=== PATIENT | male | born 1935 | race Caucasian/White ===

== ENCOUNTER 2017-11-28 13:27 | Inpatient (IN) | payer MEDICARE, OTHER ==
[2017-11-28] MEDS ORDERED: Pantoprazole 80 MG in Sodium Chloride 0.9% 100 ML IVP SCH (14:45)
[2017-11-28] MEDS ORDERED: Ondansetron HCl/PF 4 MG/2 ML Vial IVP PRN (15:16)
--- NOTE | 2017-11-28 15:19 | HP ---
DATE OF ADMISSION: 11/28/2017 CHIEF COMPLAINT: Black stool. HISTORY OF PRESENT ILLNESS: This is an 82-year-old elderly white male with a known past medical hist ory of hypertension and hyperlipidemia, and has a recent history of influenza A infection. On 2016, he was diagnosed with influenza A following cross infection from his . The patient was sta rted on Tamiflu and he completed the course and last night 2 a.m. in the morning he experienced sever e profuse sweating and this was followed by a bowel movement which is completely black in color. Aby walton mentioned that he is on a medication called diclofenac twice a day and has been taking it for al most a couple of weeks for chronic pain management. It was started by his primary care physician. Jagdish hammond went to a nearby ER at [place] where he had rectal exam and it was positive for guaiac stool. The patient had NG tube placed to look for any active bleeding. There was no bleeding. He was sent imm ediately. He was sent following day to [facility] ER. Patient was admitted. He was pretty stable. His hemoglobin is 13.2. Did not appeared to be in any acute distress. No nausea was noted . No vomiting. While listening to me, he had severe sneezing episode wherein his NG tube came out. The patient was not nauseous anymore at this time. He denied having any chest pain. No abdominal p ain, no diarrhea, no constipation at this time. Patient has a remote history of gastric ulcers, duri ng which time he had a part of the stomach wall removed with major surgery. Since then, the patient never had any medical problems. He is not on any blood thinners except for the diclofenac. PAST MEDICAL HISTORY: 1. Hypertension. 2. Hyperlipidemia. 3. History of bowel obstructions. 4. History of gastric ulcers in the past. 5. Chronic back pain problems. PAST SURGICAL HISTORY: 1. Hernia repair. 2. History of bowel obstruction surgeries. 3. History of cholecystectomy. 4. History of left inguinal surgery. 5. History of orthopedic surgery to the lower back. 6. History of prostatectomy. SOCIAL HISTORY: The patient drinks every day. He drinks less than 5 drinks per day and denies smoki ng. No history of alcohol. No history of illicit drug use. He was a former smoker, smoked cigarett es more than 10 years ago. FAMILY HISTORY: No significant family history of colon cancer or any other malignancies. REVIEW OF SYSTEMS: All 12 systems are reviewed with the patient thoroughly and found to be negative at this time except the ones described in the HPI. The following complete review of systems was nega tive, unless otherwise mentioned in the HPI or below: Constitutional: Weight loss or gain, sense of well-being, ability to conduct usual activities, exerc ise tolerance. Skin/Breast: Rash, itching, changes in hair growth or loss, nail changes, breast lumps, tenderness, swelling, nipple discharge. Eyes: Vision, double vision, tearing, blind spots, pain. ENT/Mouth: Headaches (location, time of onset, duration, precipitating factors), vertigo, lightheade dness, injury. Vision, double vision, tearing, blind spots, pain, nose bleeding, colds, obstruction, discharge, dental difficulties, gingival bleeding, dentures, neck stiffness, pain, tenderness, masses in thyroid or other areas Cardiovascular: Precordial pain, substernal distress, palpitations, syncope, dyspnea on exertion, or thopnea, nocturnal paroxysmal dyspnea, edema, cyanosis, hypertension, heart murmurs, varicosities, ph lebitis, claudication. Respiratory: Pain, shortness of breath, wheezing, stridor, cough, hemoptysis, fever or night sweats Gastrointestinal: Poor appetite, dysphagia, indigestion, abdominal pain, heartburn, eructation, naus ea, vomiting, hematemesis, jaundice, constipation, or diarrhea, abnormal stools (felipe-colored, tarry, bloody, greasy, foul smelling), flatulence, hemorrhoids, recent changes in bowel habits. Genitourinary: Urgency, frequency, dysuria, nocturia, hematuria, polyuria, oliguria, unusual (or kiana nge in) color of urine, stones, hesitancy, change in size of stream, dribbling, acute retention or in continence, libido, potency. Musculoskeletal: Pain, swelling, redness or heat of muscles or joints, limitation, of motion, muscul ar weakness, atrophy, cramps. Neurologic/Psychiatric: Convulsions, paralyses, tremor, incoordination, paraesthesias, difficulties with memory of speech, sensory or motor disturbances, or muscular coordination (ataxia, tremor), emot ional problems, anxiety, depression, previous psychiatric care, unusual perceptions, hallucinations. Allergy/Immunologic: Skin rash, anemia, bleeding tendency, polydipsia, polyuria, intolerance to heat or cold. PHYSICAL EXAMINATION: VITAL SIGNS: Blood pressure is 110/88, heart rate is 100, respiratory rate is 22, saturation is 100% on room air. GENERAL: The patient is moderately built, does not appear to be in acute distress at this time, he i s seen sitting in the bed. HEENT: Atraumatic, normocephalic. PERRLA. Extraocular movements were intact. Oral mucosa is pink and moist. CARDIOVASCULAR: S1, S2 normal. No murmurs, rubs or gallops. LUNGS: Bilateral air entry was equal. No wheezing, no crackles. ABDOMEN: Soft, nontender, no guarding, no rebound tenderness. Bowel sounds normal. MUSCULOSKELETAL: No calf tenderness. No pedal edema, no joint tenderness, no joint swelling. SKIN: No cyanosis, no erythema, no rash, no pallor. CENTRAL NERVOUS SYSTEM: Cranial nerve examination II-XII intact. No focal deficits were noted. NECK: No thyromegaly, no JVD, no lymphadenopathy. PSYCHIATRIC: No signs of suicidal ideation and no signs of sarath. LYMPHATICS: No evidence of generalized lymphadenopathy. No inguinal or cervical lymph nodes were no iraj. LABORATORY DATA: 1. WBC 11.9, hemoglobin 13.1, hematocrit 39.6, INR 1.0. Sodium is 142, potassium 5.1, chloride 110, bicarbonate is 20, BUN is 49, creatinine 0.77. Blood sugar is 130. 2. UA was negative for any urinary tract infection. ASSESSMENT: 1. Acute upper gastrointestinal bleed. 2. History of NSAID use. 3. History of gastric ulcers with gastrectomy. 4. Hypertension. 5. Hyperlipidemia. 6. History of chronic low back pains. PLAN: 1. Plan is to keep the patient n.p.o. at this time. We will start the patient on IV Protonix drip a nd we will consult GI for possible esophagogastroduodenoscopy in the morning. Patient is high risk f or major bleeds because of his NSAID use and with history of gastric ulcers and history of gastrectom y in the past. 2. Patient has a history of hypertension, it is well controlled. At this time, we will hold off on the blood pressure medications and we will treat with hydralazine 10 mg q.6 hours p.r.n. for any bloo d pressures more than 160. 3. Patient has history of hyperlipidemia. We will hold off on the statin at this time. We will naz sely monitor. 4. Patient has a history of alcoholism. He denies drinking alcohol 2 days ago, but we will closely monitor for any evidence of alcohol withdrawal seizures. 5. The patient's hemoglobin is stable at this time at 13.1. We will repeat another hemoglobin at 18 00. If it drops to anywhere less than 10, we will have low threshold to start him on blood transfusi on. 6. DVT prophylaxis, SCDs. I spent 70 minutes on this patient.
[2017-11-28 15:27] VITALS: BMI 29.0
[2017-11-28] MEDS: Morphine 4 MG/ML VIAL SLOW IVP PRN (17:48)
[2017-11-28] MEDS: Sodium Chloride 0.9% 1,000 ML IV SCH (17:48)
[2017-11-28 19:03] LABS: #Lymphocytes 1.8 thou/uL (1.20-3.40); #Monocytes 0.9 thou/uL (0.11-0.59); #Neutrophils 11.7 thou/uL (1.40-6.50); %Basophils 0.1 % (0.0-1.0); %Eosinophils 0.2 % (0.0-10.0); %Lymphocytes 12.3 % (21.0-51.0); %Neutrophils 81.5 % (42.0-75.0); Hemoglobin 11.8 g/dL (14.0-18.0); Mean Corpuscular Hemoglobin 31.5 pg (27.0-31.0); Mean Corpuscular Volume 92.8 fl (80.0-94.0); Mean Platelet Volume 9.3 fL (7.4-10.4); Platelet Count 189 thou/uL (130-400); Red Blood Cell (RBC) Count 3.73 mill/uL (4.70-6.10); White Blood Cell (WBC) Count 14.3 thou/uL (4.8-10.8)
--- NOTE | 2017-11-28 20:02 | CON ---
DATE OF CONSULTATION: 11/28/2017 HISTORY OF PRESENT ILLNESS: The patient is an 82-year-old white male who was in normal state of heal th until the last few days when he developed influenza A. He was treated with Tamiflu, was doing wel l until this morning when he woke and had a black tarry stool. He has had similar episode 20 years a go or more when he had a bleeding ulcer that was treated surgically. He denies any abdominal pain, n ausea, vomiting, any recent weight loss. He does take diclofenac for arthritis. PAST MEDICAL HISTORY: Includes hypertension, hyperlipidemia, bowel obstruction, chronic back pain. PAST SURGICAL HISTORY: Herniorrhaphy, partial gastrectomy for gastric ulcers, cholecystectomy, ingui nal hernia repair, lower back surgery, prostatectomy. MEDICATIONS: Zantac 150 mg p.o. b.i.d., Toprol-XL 50 mg p.o. daily, lisinopril and hydrochlorothiazi de 1 p.o. daily, omega 3 one p.o. daily, gabapentin 300 mg p.o. t.i.d., Vytorin 1 p.o. at bedtime, di clofenac 75 mg p.o. b.i.d., calcium and vitamin D 1 p.o. daily. ALLERGIES: CELEBREX, CONTRAST DYE, PENICILLIN, and SULFA. SOCIAL HISTORY: He quit smoking 5 years ago. Drinks 2 beers per day. FAMILY HISTORY: Negative for GI or liver disease. REVIEW OF SYSTEMS: Constitutional: No fever or chills. No weight loss. Eyes: No blurred vision o r double vision. ENT: No sore throat or earaches. Cardiovascular: No chest pain or palpitation. Pulmonary: No shortness of breath, cough, or wheezing. Gastrointestinal: See above. Genitourinary : No hematuria or dysuria. Musculoskeletal: No joint pain or muscle weakness. Skin: No rashes. Neurologic: No numbness or seizure activity. PHYSICAL EXAMINATION: GENERAL: Shows a well-developed, well-nourished, elderly white male in no acute distress. VITAL SIGNS: Temperature 97.7, pulse 113, respiratory rate 18, blood pressure 101/59. HEENT: Unremarkable. NECK: Supple. CHEST: Clear. CARDIOVASCULAR: Regular rate and rhythm. ABDOMEN: Soft and nontender without organomegaly or masses. Bowel sounds are present and normoactiv e. RECTAL: Deferred. EXTREMITIES: Normal. LABORATORY DATA: Laboratory done at [facility] showed a white blood cell count 11.9, hemoglob in 13, hematocrit 39.6. PT is 13.2, INR of 1. Chemistries significant for a chloride 110, CO2 of 20 , BUN 49, creatinine 0.77, glucose 130. ASSESSMENT: 1. Upper gastrointestinal bleed. 2. History of peptic ulcer disease, status post partial gastrectomy. RECOMMENDATIONS: 1. Proton-pump inhibitor. 2. EGD tomorrow. 3. Okay to begin clears.
[2017-11-29] MEDS: Morphine 4 MG/ML VIAL SLOW IVP PRN ×4 (03:05→22:11)
[2017-11-29] MEDS: Sodium Chloride 0.9% 1,000 ML IV SCH ×2 (03:05→13:45)
[2017-11-29] MEDS ORDERED: Lidocaine 1% PF 5 ML VIAL ONE (06:45)
[2017-11-29 07:06] LABS: Chloride 113 mmol/L (98-107); Potassium 4.3 mmol/L (3.5-5.1); Sodium 144 mmol/L (136-145)
[2017-11-29 07:07] LABS: Calcium 8.9 mg/dL (7.8-10.44); Glucose 114 mg/dL (83-110)
[2017-11-29 07:09] LABS: Anion Gap 12 mmol/L (10-20); Carbon Dioxide 23 mmol/L (23-31)
[2017-11-29 07:10] LABS: Calc. Creatinine Clearance 102 mL/min (70-130); Estimated GFR-MDRD Greater than 90
[2017-11-29 07:11] LABS: BUN (Urea Nitrogen) 43 mg/dL (8.4-25.7)
--- NOTE | 2017-11-29 12:22 | PDOC.PN ---
- Subjective Encounter Start Date: 11/29/17 Encounter Start Time: 12:21 Subjective: Seen and examined c/o sciatica pain - Objective Resuscitation Status: Resuscitation Status FULL:Full Resuscitation Vital Signs & Weight: Vital Signs (12 hours) Temp Pulse Resp BP BP Pulse Ox 11/29/17 11:25 98.3 F 82 16 141/68 H 96 11/29/17 07:24 97.5 F L 80 18 119/66 96 11/29/17 07:15 97.5 F L 80 18 11/29/17 03:05 97.7 F 74 16 119/71 97 Weight Weight 226 lb 11.2 oz I&O: 11/28/17 11/29/17 11/30/17 06:59 06:59 06:59 Intake Total 1331 Output Total 1500 450 Balance -169 -450 Result Diagrams: 11/28/17 18:39 11/29/17 06:45 Phys Exam - Physical Examination Constitutional: NAD HEENT: PERRLA, moist MMs, sclera anicteric, TM's clear Neck: no JVD, supple, full ROM Respiratory: no wheezing, no rales, no rhonchi, clear to auscultation bilateral Cardiovascular: RRR, no significant murmur, no rub Gastrointestinal: soft, non-tender, no distention, positive bowel sounds Dx/Plan (1) GI bleed Code(s): K92.2 - GASTROINTESTINAL HEMORRHAGE, UNSPECIFIED Status: Acute (2) Dyslipidemia Code(s): E78.5 - HYPERLIPIDEMIA, UNSPECIFIED Status: Chronic (3) GERD (gastroesophageal reflux disease) Code(s): K21.9 - GASTRO-ESOPHAGEAL REFLUX DISEASE WITHOUT ESOPHAGITIS Status: Chronic (4) Hypertension Code(s): I10 - ESSENTIAL (PRIMARY) HYPERTENSION Status: Chronic - Plan PT/OT, social human services assistants IVF -: EGD today * .
[2017-11-29] MEDS ORDERED: Ondansetron HCl/PF 4 MG/2 ML Vial IVP PRN ×2 (14:36→15:49)
[2017-11-29] MEDS ORDERED: Fentanyl 100 MCG/2 ML VIAL ONE ×2 (15:17→15:33)
[2017-11-29] MEDS ORDERED: Promethazine HCl 25 MG/ML VIAL SLOW IVP PRN (15:49)
[2017-11-29] MEDS ORDERED: Promethazine HCl 25 MG/ML VIAL IM PRN (15:49)
[2017-11-29 16:39] LABS: Hemoglobin 10.8 g/dL (14.0-18.0); Mean Corpuscular HGB CONC 33.4 g/dL (32.0-36.0); Mean Corpuscular Hemoglobin 31.4 pg (27.0-31.0); Mean Platelet Volume 8.9 fL (7.4-10.4); Platelet Count 186 thou/uL (130-400); Red Blood Cell (RBC) Count 3.43 mill/uL (4.70-6.10); White Blood Cell (WBC) Count 15.3 thou/uL (4.8-10.8)
--- NOTE | 2017-11-29 17:18 | OP ---
PREOPERATIVE DIAGNOSIS: Upper gastrointestinal bleed. PROCEDURE: After informed consent was obtained, the patient placed in the left lateral decubitus pos ition. Anesthesia was administered per the Anesthesia Department. Forward-viewing endoscope was ins erted into the esophagus under direct visualization with ease and passed to the second portion of the duodenum. There in the area beyond the anastomosis with some bright red blood. There seemed to be a small ulcer with a visible vessel. This was initially cauterized with a 10-Fijian BICAP electrocau harrison and probe with brisk bleeding. The probe was removed and then the epinephrine 1:[id number] was injec iraj in a 4 quadrant fashion achieving good hemostasis. Then, the visible vessel was completely ablat ed with a 10-Fijian BICAP electrocautery probe. Good hemostasis was achieved. ASSESSMENT: 1. Duodenal ulcer with active bleeding - status post sclerotherapy and BICAP electrocautery. 2. Antrectomy with a Billroth I anastomosis. RECOMMENDATIONS: 1. Continue Protonix infusion. 2. Serial H&H. 3. Clear liquids.
[2017-11-29] MEDS: Pantoprazole 80 MG in Sodium Chloride 0.9% 100 ML IVP SCH (19:48)
[2017-11-30] MEDS: Pantoprazole 80 MG in Sodium Chloride 0.9% 100 ML IVP SCH (06:29)
[2017-11-30 06:39] LABS: Hemoglobin 9.1 g/dL (14.0-18.0); Mean Corpuscular HGB CONC 33.4 g/dL (32.0-36.0); Mean Corpuscular Hemoglobin 31.3 pg (27.0-31.0); Mean Corpuscular Volume 93.7 fl (80.0-94.0); Mean Platelet Volume 9.3 fL (7.4-10.4); Platelet Count 162 thou/uL (130-400); Red Blood Cell (RBC) Count 2.91 mill/uL (4.70-6.10); White Blood Cell (WBC) Count 8.7 thou/uL (4.8-10.8)
[2017-11-30 06:48] LABS: Anion Gap 11 mmol/L (10-20); BUN (Urea Nitrogen) 31 mg/dL (8.4-25.7); Calc. Creatinine Clearance 110 mL/min (70-130); Calcium 9.1 mg/dL (7.8-10.44); Carbon Dioxide 27 mmol/L (23-31); Chloride 109 mmol/L (98-107); Estimated GFR-MDRD Greater than 90; Glucose 96 mg/dL (83-110); Potassium 3.8 mmol/L (3.5-5.1); Sodium 143 mmol/L (136-145)
[2017-11-30] MEDS: Morphine 4 MG/ML VIAL SLOW IVP PRN (07:27)
--- NOTE | 2017-11-30 11:01 | PDOC.PN ---
- Subjective Encounter Start Date: 11/30/17 Encounter Start Time: 10:59 Subjective: seen and examined feeling ok - Objective Vital Signs & Weight: Vital Signs (12 hours) Temp Pulse Resp BP Pulse Ox 11/30/17 07:35 98.6 F 67 16 94 L 11/30/17 07:34 98.6 F 67 16 130/60 94 L 11/30/17 04:30 98.3 F 76 16 134/66 95 11/30/17 00:00 97.9 F 82 16 I&O: 11/29/17 11/30/17 12/01/17 06:59 06:59 06:59 Intake Total 450 Output Total 375 Balance 75 Result Diagrams: 11/30/17 05:15 11/30/17 05:15 Phys Exam - Physical Examination Constitutional: NAD HEENT: PERRLA, moist MMs, sclera anicteric, TM's clear, oral pharynx no lesions Neck: no nodes, no JVD, supple, full ROM Respiratory: no wheezing, no rales, no rhonchi, clear to auscultation bilateral Cardiovascular: RRR, no significant murmur, no rub Gastrointestinal: soft, non-tender, no distention, positive bowel sounds Musculoskeletal: no edema, pulses present Dx/Plan (1) GI bleed Code(s): K92.2 - GASTROINTESTINAL HEMORRHAGE, UNSPECIFIED Status: Acute (2) Dyslipidemia Code(s): E78.5 - HYPERLIPIDEMIA, UNSPECIFIED Status: Chronic (3) GERD (gastroesophageal reflux disease) Code(s): K21.9 - GASTRO-ESOPHAGEAL REFLUX DISEASE WITHOUT ESOPHAGITIS Status: Chronic (4) Hypertension Code(s): I10 - ESSENTIAL (PRIMARY) HYPERTENSION Status: Chronic (5) Bleeding duodenal ulcer Code(s): K26.4 - CHRONIC OR UNSPECIFIED DUODENAL ULCER WITH HEMORRHAGE Status : Acute (6) Abnormal findings on esophagogastroduodenoscopy (EGD) Code(s): R19.8 - OTH SYMPTOMS AND SIGNS INVOLVING THE DGSTV SYS AND ABDOMEN Status: Acute - Plan [employer] social worker Trending hemoglobin--still trending downwards -: On Protonix gtt-defer to Gi decision -: D/c home when ok with GI -: pain management of the sciatica with Tramadol/neurontin * .
[2017-11-30] MEDS ORDERED: traMADol HCl 50 MG TAB PO PRN (11:13)
--- NOTE | 2017-11-30 18:00 | PRG ---
DATE OF SERVICE: 11/30/2017 SUBJECTIVE: The patient is doing much better. He has had some bowel movements since include some bl ack stools. His abdominal pain is much less. He has had no nausea, vomiting. He is on a fairly reg ular diet and tolerating that well. OBJECTIVE: VITAL SIGNS: Temperature 98.6, pulse 70, respiratory rate 17, anblood pressure 126/68. CHEST: Clear. CARDIOVASCULAR: Regular rate and rhythm. ABDOMEN: Soft, nontender, without organomegaly or masses. LABORATORY DATA: Shows hemoglobin yesterday being 10.8 and dropping 9.0. ASSESSMENT: Upper gastrointestinal bleed secondary to duodenal ulcer - stable. RECOMMENDATIONS: 1. Recheck H&H in a.m. If stable, the patient would be to okay to discharge from GI standpoint. 2. Continue proton-pump inhibitor. 3. Follow up with GI as outpatient.
[2017-11-30] MEDS: Gabapentin 100 MG CAP PO SCH (21:09)
[2017-12-01 03:18] VITALS: TEMP 98
[2017-12-01 05:06] LABS: Hemoglobin 8.6 g/dL (14.0-18.0)
[2017-12-01 05:28] LABS: Anion Gap 10 mmol/L (10-20); BUN (Urea Nitrogen) 21 mg/dL (8.4-25.7); Calc. Creatinine Clearance 110 mL/min (70-130); Calcium 8.8 mg/dL (7.8-10.44); Carbon Dioxide 28 mmol/L (23-31); Chloride 106 mmol/L (98-107); Estimated GFR-MDRD Greater than 90; Glucose 91 mg/dL (83-110); Potassium 3.7 mmol/L (3.5-5.1); Sodium 140 mmol/L (136-145)
[2017-12-01] MEDS: Gabapentin 100 MG CAP PO SCH (07:54)
[2017-12-01 08:25] VITALS: BP 148/70
== END 2017-12-01 10:32 | disposition home or self-care (01) | DRG 379 ==
LOC: ERS 13:27 → 2SW 14:10 → OBSVTOIN 11-29 18:50
PROVIDERS: ADMIT Family Medicine; ATTEND Family Medicine
PROC: 0W3P8ZZ Control Bleeding in Gastrointestinal Tract, Via Natural or Artificial Opening Endoscopic (ICD-10-PCS; principal; 2017-11-29)
PROC: 3E0G8GC Introduction of Other Therapeutic Substance into Upper GI, Via Natural or Artificial Opening Endoscopic (ICD-10-PCS; 2017-11-29)
DX: K26.4 Chronic or unspecified duodenal ulcer with hemorrhage (principal); E78.5 Hyperlipidemia, unspecified; I10 Essential (primary) hypertension; Z90.3 Acquired absence of stomach [part of]; F10.21 Alcohol dependence, in remission; Z87.891 Personal history of nicotine dependence; K21.9 Gastro-esophageal reflux disease without esophagitis
CPT/HCPCS: 36415; 80048; 85014; 85018; 85027; 96374; 99285; C9113; J2001; J2270; J2405; J3010; J7050

== ENCOUNTER 2018-01-15 08:24 | Outpatient (CLI) | payer MEDICARE, OTHER ==
[2018-01-15 09:10] LABS: Estimated GFR-MDRD - POC Greater than 90
--- NOTE | 2018-01-15 10:04 | RAD ---
LUMBAR SPINE FOUR VIEWS INCLUDING FLEXION AND EXTENSION LATERAL VIEWS: History: 82-year-old male with history of lumbar radiculopathy and pain radiating to both legs with low back p ain. FINDINGS: There is levoscoliosis of the upper lumbar lower thoracic vertebral column. Very severe disc osteophy tosis and facet arthrosis. Extensive surgical clips in the inferior pelvis. There is an extensive, ap proximately 1.6 cm diameter anterolisthesis of L4 on L5, which does not significantly between flexion and extension. Severe facet arthrosis. IMPRESSION: Approximately 1.6 cm anterolisthesis of L4 on L5 but without significant change between flexion and e xtension. Severe spondylosis. Mild levoscoliosis. POS: SOFI
--- NOTE | 2018-01-15 11:43 | MRI ---
MRI OF THE LUMBAR SPINE WITH AND WITHOUT IV CONTRAST: Indication: 82-year-old male with low back pain radiating down both legs. The patient reportedly has difficulty w ith his feet feeling cold. Patient has history of lumbar spinal procedure 20 years ago. Technique: Multiplanar, multisequence MR images were obtained of the lumbar spine with and without contrast util izing 20 cc of MultiHance. Comparison: Lumbar spine radiographs, 01-15-18. FINDINGS: There is post procedural change of a laminectomy at L4-5. There is grade I anterolisthesis of L4 on L 5. There is mild retrolisthesis at L2-3 and L1-2. The visualized retroperitoneum demonstrate multiple small peripelvic cysts. No pathologically enlarged lymph nodes are seen within the retroperitoneum. 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 At the L5-S1 level, there is an asymmetric to the left disc osteophyte complex which in addition to l oss of disc space height and facet hypertrophy induces moderate to severe subarticular left lateral r ecess narrowing with encroachment on the traversing left S1 nerve root without definite impingement. The disc osteophyte complex, loss of disc space height, and facet hypertrophy also induces severe lef t neural foraminal narrowing with impingement on the exiting left L5 nerve root. There is no apprecia ble right neural foraminal narrowing. At The L4-5 level, there is advanced facet joint degenerative change. There is grade I anterolisthesi s. There is loss of disc space height and a broad based pseudo bulge than is greater on the right. Co nstellation of findings induces moderate to severe right and mild left neural foraminal narrowing. At L3-4, there is a broad based disc osteophyte complex with severe facet joint degenerative change a nd ligamentum flavum hypertrophy inducing moderate to severe central canal narrowing with moderate to severe left and moderate right neural foraminal narrowing. At L2-3, there is a broad based disc osteophyte complex with facet hypertrophy and ligamentum flavum hypertrophy inducing mild central canal narrowing with moderate to severe right and mild to moderate left neural foraminal narrowing. At L1-2, there is a broad based bulge with a superimposed right foraminal/extra foraminal disc osteop hyte complex inducing moderate to severe right and mild left neural foraminal narrowing. At T12-L1, there is a mild broad based bulge without appreciable central canal or neural foraminal na rrowing. No definite abnormal enhancement is demonstrated involving the cauda equina. IMPRESSION: 1. Post-operative lumbar spine. 2. Severe multilevel spondylosis with central canal and neural foraminal narrowing as detailed above. POS: SOFI
[2018-01-15] MEDS ORDERED: Gadobenate Dimeglumine 529 MG/1 ML (20ML VIAL) ONE (11:44)
== END 2018-01-15 08:25 | disposition home or self-care (01) ==
LOC: TBSIIMAG 08:24
PROVIDERS: ATTEND Surgery
DX: M47.26 Other spondylosis with radiculopathy, lumbar region (principal); M43.16 Spondylolisthesis, lumbar region; M41.86 Other forms of scoliosis, lumbar region
CPT/HCPCS: 72110; 72158; A9579

== ENCOUNTER 2018-04-03 10:28 | Outpatient (CLI) | payer MEDICARE, OTHER ==
[2018-04-03 11:22] LABS: Hemoglobin 15.3 g/dL (14.0-18.0); Mean Corpuscular HGB CONC 32.2 g/dL (32.0-36.0); Mean Corpuscular Hemoglobin 27.5 pg (27.0-31.0); Mean Corpuscular Volume 85.3 fl (80.0-94.0); Mean Platelet Volume 9.6 fL (7.4-10.4); Platelet Count 178 thou/uL (130-400); RBC Distribution Width 14.3 % (11.5-14.5); Red Blood Cell (RBC) Count 5.56 mill/uL (4.70-6.10); White Blood Cell (WBC) Count 7.5 thou/uL (4.8-10.8)
[2018-04-03 11:44] LABS: Anion Gap 13 mmol/L (10-20); BUN (Urea Nitrogen) 16 mg/dL (8.4-25.7); Calc. Creatinine Clearance 0 mL/min (70-130); Calcium 9.9 mg/dL (7.8-10.44); Carbon Dioxide 24 mmol/L (23-31); Chloride 106 mmol/L (98-107); Estimated GFR-MDRD Greater than 90; Glucose 91 mg/dL (83-110); Potassium 4.2 mmol/L (3.5-5.1); Sodium 139 mmol/L (136-145)
[2018-04-03 11:47] LABS: PTT 31.9 SEC (22.9-36.1); Prothrombin Time 13.4 SEC (12.0-14.7)
== END 2018-04-03 10:29 | disposition home or self-care (01) ==
LOC: LABBT 10:28
PROVIDERS: ATTEND Surgery
DX: Z01.818 Encounter for other preprocedural examination (principal); M54.16 Radiculopathy, lumbar region; M48.061 Spinal stenosis, lumbar region without neurogenic claudication
CPT/HCPCS: 80048; 85027; 85610; 85730; 93005; 93010

== ENCOUNTER 2018-04-08 07:13 | Day surgery (SDC) | payer MEDICARE, OTHER ==
[2018-04-03 11:14] VITALS: BMI 29.9
[2018-04-08] MEDS ORDERED: Clindamycin/D5W 900 mg/50 ml Premix Bag ONE (07:41)
[2018-04-08] MEDS ORDERED: Levofloxacin 500 mg/D5W 100 ml Premix Bag ONE (07:41)
[2018-04-08] MEDS ORDERED: Thrombin 5000 UNITS/5 ML VIAL ONE (07:58)
[2018-04-08] MEDS ORDERED: Sodium Chloride 0.9% 10 ML ONE (07:58)
[2018-04-08] MEDS ORDERED: Bacitracin Zinc Ointment 30 gm TUBE ONE (07:58)
[2018-04-08] MEDS ORDERED: Famotidine/PF 20 mg/2ml Vial ONE (08:22)
[2018-04-08] MEDS ORDERED: Fentanyl 100 MCG/2 ML VIAL ONE (08:26)
[2018-04-08] MEDS ORDERED: Promethazine HCl 25 MG/ML VIAL SLOW IVP PRN (09:57)
[2018-04-08] MEDS ORDERED: Ondansetron HCl/PF 4 MG/2 ML Vial IVP PRN (09:57)
[2018-04-08] MEDS ORDERED: HYDROmorphone 2 MG/ML VIAL SLOW IVP PRN (09:57)
[2018-04-08] MEDS ORDERED: Morphine Sulfate 2 MG/ML SYRINGE SLOW IVP PRN (09:57)
[2018-04-08] MEDS ORDERED: Promethazine HCl 25 MG/ML VIAL IM PRN (09:57)
[2018-04-08] MEDS ORDERED: Meperidine HCl/PF 25 MG/ML VIAL SLOW IVP PRN (09:57)
[2018-04-08] MEDS ORDERED: HYDROmorphone 0.5 MG/0.5 ML SYRINGE ONE ×2 (10:17→10:56)
[2018-04-08] MEDS ORDERED: traMADol HCl 50 MG TAB PO PRN (11:21)
[2018-04-08] MEDS ORDERED: Fleet Enema 133 ML BOT PR PRN (11:21)
[2018-04-08] MEDS ORDERED: Milk Of Magnesia 30 ML UDCUP PO PRN (11:21)
[2018-04-08] MEDS ORDERED: Bisacodyl 10 MG SUPP PR PRN (11:21)
[2018-04-08] MEDS ORDERED: Mag-Al 1200 mg/1200 mg/30 ML UDCUP PO PRN (11:21)
[2018-04-08] MEDS ORDERED: Acetaminophen 325 MG TAB PO PRN (11:21)
[2018-04-08] MEDS ORDERED: Acetaminophen/Codeine 30-300mg Tablet PO PRN (11:21)
[2018-04-08] MEDS ORDERED: Morphine 4 MG/ML VIAL SLOW IVP PRN (11:21)
[2018-04-08] MEDS ORDERED: HYDROcodone/Acetaminophen 7.5/325 mg Tablet PO PRN (11:21)
[2018-04-08] MEDS ORDERED: tiZANidine HCl 4 MG TAB PO PRN (11:21)
[2018-04-08] MEDS ORDERED: Promethazine HCl 12.5 MG SUPP PR PRN (11:21)
[2018-04-08] MEDS ORDERED: Morphine 4 MG/ML VIAL ONE (11:47)
--- NOTE | 2018-04-08 12:31 | OP ---
DATE OF PROCEDURE: 04/08/2018 OR: OR #12 PREPROCEDURE DIAGNOSES: Lumbar stenosis with history of lumbar laminectomy. POSTPROCEDURE DIAGNOSES: Lumbar stenosis with history of lumbar laminectomy. PROCEDURE: L3-L4 laminectomy, partial facetectomy, and foraminotomies with history of L4-L5 surgery. SURGEON: Anuj Reddy M.D. DOG OBEDIENCE INSTRUCTOR: Harvinder Sanford PA-C. DESCRIPTION OF PROCEDURE: After informed consent was obtained from the patient, the patient brought to OR 12. Proper patient pause and identification was carried out. He was placed under excellent ge neral endotracheal anesthesia and positioned prone on the OR table. All appropriate points were padd ed. We identified the prior midline lumbar wound and a portion of this was used for the L3-L4 approa ch. The wound was sterilely cleansed, prepared, and draped. Proper patient pause and identification was again carried out. The wound was then opened in a combination of sharp, monopolar and blunt dis section proceeded over the L3-L4 segment. We identified the L3-L4 segment and the prior scar. We th en proceeded to perform an L3-L4 laminectomy, partial facetectomy, foraminotomies with excellent deco mpression of the L3, L4, nerve roots and bilaterally and the common dural tube. There was no spinal fluid leak. Hemostasis was maximized throughout. The wound was then closed in anatomic layers follo wing the sprinkling of vancomycin powder. The patient then emerged from anesthesia.
[2018-04-08] MEDS ORDERED: Glycopyrrolate 0.2 MG/ML 5 ML SYRINGE ONE (13:51)
[2018-04-08] MEDS ORDERED: ePHEDrine/0.9% NaCl/PF SYRINGE 50 mg/10 ml ONE (13:51)
[2018-04-08] MEDS ORDERED: Lidocaine 1% PF 5 ML VIAL ONE (13:51)
[2018-04-08] MEDS ORDERED: PHENYLEPHRINE-NS 100 MCG/ML 10 ML SYRINGE ONE (13:51)
[2018-04-08] MEDS ORDERED: PROPOFOL 200 MG/20 ML VIAL ONE (13:51)
[2018-04-08] MEDS: Sodium Chloride 0.9% 1,000 ML IV SCH (15:22)
[2018-04-08] MEDS: Clindamycin/D5W 900 MG in Premix Bag 1 BAG IVPB SCH (16:46)
[2018-04-08] MEDS: Gabapentin 300 MG CAP PO SCH (19:58)
[2018-04-08] MEDS ORDERED: Ezetimibe 10 MG TAB PO SCH (21:00)
[2018-04-08] MEDS ORDERED: Simvastatin 20 MG TAB PO SCH (21:00)
[2018-04-08] MEDS ORDERED: Non-Formulary Item 1 EACH (Ezetimibe/Simvastatin [Vytorin] 1 TABLET) PO SCH (21:00)
[2018-04-09] MEDS: Clindamycin/D5W 900 MG in Premix Bag 1 BAG IVPB SCH (01:03)
[2018-04-09] MEDS: Sodium Chloride 0.9% 1,000 ML IV SCH ×2 (05:06→11:20)
[2018-04-09 07:33] VITALS: BP 109/70
[2018-04-09] MEDS: Gabapentin 300 MG CAP PO SCH (08:51)
[2018-04-09] MEDS ORDERED: Cyanocobalamin (Vitamin B-12) 1,000 MCG TAB PO SCH (09:00)
[2018-04-09] MEDS ORDERED: Calcium Carbonate + Vit D 1 TAB PO SCH (09:00)
[2018-04-09] MEDS ORDERED: Amlodipine 5 MG TAB PO SCH (09:00)
--- NOTE | 2018-04-09 11:37 | PRG ---
DATE OF SERVICE: 04/09/2018 Mr. Cheng is postoperative day 1 from L3-L4 laminectomy. He states he has had resolution in his leg pain. He is ambulating, tolerating orals and voiding on his own with good strength. We will plan o n dismissal. We went over inter and postoperative issues. I am very pleased with his outcome.
[2018-04-09 13:16] VITALS: TEMP 98.2
== END 2018-04-09 13:17 | disposition home or self-care (01) ==
LOC: SDC 07:13 → SURG B 13:34 → SDC 04-09 13:17
PROVIDERS: ATTEND Surgery
PROC: 01NB0ZZ Release Lumbar Nerve, Open Approach (ICD-10-PCS; principal; 2018-04-08)
DX: M48.062 Spinal stenosis, lumbar region with neurogenic claudication (principal); E78.5 Hyperlipidemia, unspecified; K21.9 Gastro-esophageal reflux disease without esophagitis; M19.90 Unspecified osteoarthritis, unspecified site; Z88.0 Allergy status to penicillin; Z88.2 Allergy status to sulfonamides; Z91.041 Radiographic dye allergy status; Z88.6 Allergy status to analgesic agent; Z79.899 Other long term (current) drug therapy
CPT/HCPCS: 76001; A4216; J0131; J1170; J1956; J2001; J2270; J2704; J3010; J3370; J3490; S0028

== ENCOUNTER 2022-10-10 13:42 | Inpatient (IN) | payer MEDICARE, OTHER ==
[2022-10-10 15:43] VITALS: BMI 30.7
[2022-10-10] MEDS ORDERED: Ondansetron PF 4 MG/2 ML Vial IVP PRN (16:03)
[2022-10-10] MEDS: Lactated Ringer's 1,000 ML IV SCH ×2 (16:35→23:27)
[2022-10-10] MEDS: Atorvastatin Calcium 10 MG TAB PO SCH (20:19)
[2022-10-10] MEDS: Gabapentin 300 MG CAP PO SCH (20:19)
[2022-10-10] MEDS: Acetaminophen 325 MG TAB PO SCH (20:19)
[2022-10-10] MEDS ORDERED: Ezetimibe 10 MG TAB PO SCH (21:00)
[2022-10-11] MEDS: Lactated Ringer's 1,000 ML IV SCH ×2 (06:10→14:31)
[2022-10-11 07:16] LABS: #Eosinphils 0.1 thou/uL (0.0-0.7); #Lymphocytes 1.6 thou/uL (1.20-3.40); #Monocytes 0.9 thou/uL (0.11-0.59); #Neutrophils 6.6 thou/uL (1.40-6.50); %Basophils 0.3 % (0.0-1.0); %Eosinophils 0.9 % (0.0-10.0); %Lymphocytes 17.2 % (21.0-51.0); %Monocytes 9.4 % (0.0-10.0); %Neutrophils 72.3 % (42.0-75.0); Hemoglobin 14.5 g/dL (14.0-18.0); Mean Corpuscular Hemoglobin 30.4 pg (27.0-31.0); Mean Platelet Volume 9.6 fL (7.4-10.4); Platelet Count 147 10x3/uL (130-400); RBC Distribution Width 12.3 % (11.5-14.5); Red Blood Cell (RBC) Count 4.77 mill/uL (4.70-6.10); White Blood Cell (WBC) Count 9.1 10x3/uL (4.8-10.8)
[2022-10-11 07:35] LABS: ALT (SGPT) 16 U/L (8-55); AST (SGOT) 16 U/L (5-34); Albumin 3.7 g/dL (3.4-4.8); Alkaline Phosphatase 72 U/L (40-110); Anion Gap 13 mmol/L (10-20); BUN (Urea Nitrogen) 8 mg/dL (8.4-25.7); Calc. Creatinine Clearance 104 mL/min (70-130); Carbon Dioxide 26 mmol/L (23-31); Chloride 105 mmol/L (98-107); Estimated GFR 87; Globulin 2.8 g/dL (2.4-3.5); Glucose 93 mg/dL (83-110); Potassium 4.1 mmol/L (3.5-5.1); Protein, Total 6.5 g/dL (5.8-8.1); Sodium 140 mmol/L (136-145)
[2022-10-11] MEDS: Cyanocobalamin (Vitamin B-12) 1,000 MCG TAB PO SCH (08:18)
[2022-10-11] MEDS: Amlodipine 5 MG TAB PO SCH (08:18)
[2022-10-11] MEDS: Calcium Carbonate + Vit D 250 MG TAB PO SCH (08:18)
[2022-10-11] MEDS: Fish Oil 1,000 MG CAP PO SCH (08:18)
[2022-10-11] MEDS: Gabapentin 300 MG CAP PO SCH ×2 (08:19→20:00)
[2022-10-11] MEDS: Enoxaparin Sodium 40 MG/0.4 ML SYRINGE SC SCH (08:38)
[2022-10-11] MEDS ORDERED: Amlodipine 5 MG TAB PO ONE (10:40)
[2022-10-11] MEDS ORDERED: Amlodipine 5 MG TAB PO SCH (11:00)
[2022-10-11] MEDS ORDERED: Fleet Enema 133 ML BOT PR SCH (11:45)
[2022-10-11] MEDS: Acetaminophen 325 MG TAB PO SCH (20:00)
[2022-10-11] MEDS: Atorvastatin Calcium 10 MG TAB PO SCH (20:00)
[2022-10-11] MEDS ORDERED: Ezetimibe 10 MG TAB PO SCH (21:00)
[2022-10-12 06:29] LABS: #Eosinphils 0.1 thou/uL (0.0-0.7); #Lymphocytes 1.6 thou/uL (1.20-3.40); #Monocytes 0.9 thou/uL (0.11-0.59); #Neutrophils 4.5 thou/uL (1.40-6.50); %Basophils 0.5 % (0.0-1.0); %Eosinophils 1.8 % (0.0-10.0); %Lymphocytes 22.6 % (21.0-51.0); %Monocytes 12.9 % (0.0-10.0); %Neutrophils 62.2 % (42.0-75.0); Hemoglobin 13.1 g/dL (14.0-18.0); Mean Corpuscular HGB CONC 31.8 g/dL (32.0-36.0); Mean Corpuscular Hemoglobin 29.8 pg (27.0-31.0); Mean Corpuscular Volume 93.8 fl (78.0-98.0); Mean Platelet Volume 9.7 fL (7.4-10.4); Platelet Count 134 10x3/uL (130-400); RBC Distribution Width 12.4 % (11.5-14.5); Red Blood Cell (RBC) Count 4.39 mill/uL (4.70-6.10); White Blood Cell (WBC) Count 7.3 10x3/uL (4.8-10.8)
[2022-10-12 06:50] LABS: ALT (SGPT) 11 U/L (8-55); AST (SGOT) 16 U/L (5-34); Albumin 3.5 g/dL (3.4-4.8); Alkaline Phosphatase 70 U/L (40-110); Anion Gap 11 mmol/L (10-20); BUN (Urea Nitrogen) 11 mg/dL (8.4-25.7); Calc. Creatinine Clearance 106 mL/min (70-130); Calcium 8.9 mg/dL (7.8-10.44); Carbon Dioxide 27 mmol/L (23-31); Chloride 106 mmol/L (98-107); Estimated GFR 87; Globulin 2.7 g/dL (2.4-3.5); Glucose 88 mg/dL (83-110); Potassium 3.8 mmol/L (3.5-5.1); Protein, Total 6.2 g/dL (5.8-8.1); Sodium 140 mmol/L (136-145)
[2022-10-12] MEDS: Gabapentin 300 MG CAP PO SCH (08:14)
[2022-10-12] MEDS: Cyanocobalamin (Vitamin B-12) 1,000 MCG TAB PO SCH (08:14)
[2022-10-12] MEDS: Fish Oil 1,000 MG CAP PO SCH (08:15)
[2022-10-12] MEDS: Calcium Carbonate + Vit D 250 MG TAB PO SCH (08:15)
[2022-10-12] MEDS: Amlodipine 5 MG TAB PO SCH (08:15)
[2022-10-12] MEDS: Enoxaparin Sodium 40 MG/0.4 ML SYRINGE SC SCH (08:15)
[2022-10-12 08:39] VITALS: BP 147/73; TEMP 98.3
[2022-10-12] MEDS ORDERED: Floranex 1 GM Packet PO SCH (09:00)
== END 2022-10-12 13:10 | disposition home or self-care (01) | DRG 390 ==
LOC: INTOOBSV 13:42 → T4-A 13:42 → OBSVTOIN 10-11 12:01
PROVIDERS: ADMIT Family Medicine; ATTEND Family Medicine
PROC: 0D9670Z Drainage of Stomach with Drainage Device, Via Natural or Artificial Opening (ICD-10-PCS; principal; 2022-10-11)
DX: K56.609 Unspecified intestinal obstruction, unspecified as to partial versus complete obstruction (principal); Z20.822 Contact with and (suspected) exposure to COVID-19; I10 Essential (primary) hypertension; E78.5 Hyperlipidemia, unspecified; K21.9 Gastro-esophageal reflux disease without esophagitis; Z88.0 Allergy status to penicillin; Z88.2 Allergy status to sulfonamides; Z91.041 Radiographic dye allergy status; Z88.8 Allergy status to other drugs, medicaments and biological substances; Z79.899 Other long term (current) drug therapy
CPT/HCPCS: 36415; 74018; 74250; 80053; 85025; J1650; J7120